=== PATIENT | female | born 1945 | race Caucasian/White ===

== ENCOUNTER 2016-12-12 11:58 | Emergency (ER) | payer MEDICARE, OTHER ==
[2016-12-12 13:08] LABS: BASOPHILS 0.3 % (0.0-2.0); EOSINOPHILS 0.4 % (0.0-6.0); HEMATOCRIT 45.8 % (36.0-48.0); HEMOGLOBIN 15.9 g/dL (12.0-16.0); LYMPHOCYTES 40.1 % (20.0-40.0); LYMPHOCYTES# 3.3 X 10^3uL (0.8-3.8); MEAN CELL VOLUME 89.7 fL (80.0-100.0); MEAN CORPUS. HGB CONCENTRATION 34.7 g/dL (32.0-36.0); MEAN CORPUSCULAR HEMOGLOBIN 31.1 pg (29.0-35.0); MONOCYTES 6.7 % (2.0-10.0); MONOCYTES# 0.6 X 10^3uL (0.2-1.0); NEUTROPHILS 52.5 % (54.0-75.0); NEUTROPHILS# 4.4 X 10^3uL (2.6-6.7); PLATELET COUNT 179 X 10^3uL (130-440); RED BLOOD COUNT 5.11 X 10^6uL (4.20-6.10); RED CELL DISTRIBUTION WIDTH 13.3 % (11.5-14.5); WHITE BLOOD COUNT 8.3 X 10^3uL (3.9-10.7)
[2016-12-12 13:20] LABS: BLOOD UREA NITROGEN 22 mg/dL (7-17); CALCIUM 9.7 mg/dL (8.4-10.2); CHLORIDE 108 mmol/L (98-107); CREATININE 0.9 mg/dL (0.5-1.0); EST GLOMERULAR FILTRATION RATE > 60 mL/min; GLUCOSE 125 mg/dL (70-100); MAGNESIUM 2.1 mg/dL (1.6-2.3); POTASSIUM 3.3 mmol/L (3.5-5.1); SODIUM 143 mmol/L (137-145)
[2016-12-12 13:34] LABS: TROPONIN I < 0.012 ng/mL (0.00-0.034)
[2016-12-12] MEDS ORDERED: POTASSIUM EFF 25 MEQ TABLET ONE (14:01)
--- NOTE | 2016-12-12 14:41 | ER NURSING DOCUMENTATION ---
Nurse's Notes [facility] Name:Morenita Baker Age:71 yrs Sex:Female :1945 Arrival Date:12/12/2016 Time:11:58 BedTrauma-A Private MD: Diagnosis:Atypical Chest Pain;Potassium Deficiency (Hypokalemia) Presentation: 12/12 12:08 Presenting complaint: Patient states: L jaw pain. Transition of care: Home. lp 12:08 Acuity: LAVERN 2 lp 12:08 Method Of Arrival: Walk In lp 14:30 AIR CAT ACTIVATION no other Not indicated. Asprin Given Given in ED. lp Triage Assessment: 12:10 General: Appears in no apparent distress, Behavior is appropriate for age. Pain: lp Complains of pain in left posterior upper chest wall and left posterior lower chest wall. EENT: No deficits noted. Neuro: No deficits noted. Cardiovascular: Capillary refill < 3 seconds Heart tones S1 S2 Pulses are all present. Rhythm is sinus tachycardia. Respiratory: Airway is patent Respiratory effort is even, unlabored, Respiratory pattern is regular, symmetrical. GI: No deficits noted. : No deficits noted. Derm: No deficits noted. Musculoskeletal: No deficits noted. Historical: - Allergies: PCN; - Home Meds: 1. Lisinopril Oral - PMHx: HYPERTENSION; Panic Disorder (February 21, 2014); - Tetanus: < 10 years. - Ebola Screening: : Patient negative for fever greater than or equal to 101.5 degrees Fahrenheit, and additional compatible Ebola Virus Disease symptoms. Patient denies exposure to infectious person. Patient denies travel to an Ebola-affected area in the 21 days before illness onset. . - Immunization history: Pneumococcal vaccine is up to date, Flu Vaccine < 1 year. - Social history: Smoking status: Patient states was never smoker of tobacco. Screenin:33 Infectious Disease Risk None. Abuse screen: Denies threats or abuse. Denies injuries lp from another. Nutritional screening: No deficits noted. Assessment: 14:32 See Triage Assessment done by same RN. Pain: Pain radiates to right jaw Pain began 1 lp hour ago. Neuro: No deficits noted. Cardiovascular: Heart tones S1 S2. Respiratory: Breath sounds are clear bilaterally. Vital Signs: 12:07 BP 183 / 91; Pulse 100; Resp 16; Temp 98.5; Pulse Ox 93% on R/A; Pain 5/10; lp 12:07 BP 145 / 89; Pulse 107; Resp 16; Pulse Ox 97% on R/A; Weight 100.7 kg; Height 5 ft. 3 lp in. (160.02 cm); Pain 4/10; 13:00 BP 144 / 86; Pulse 110; Resp 16; Pulse Ox 95% on R/A; lp 13:30 BP 162 / 73; Pulse 111; Resp 16; Pulse Ox 91% on R/A; lp 14:00 BP 148 / 76; Pulse 107; Resp 16; Pulse Ox 94% on R/A; lp 14:35 Pulse 110; Resp 16; Pulse Ox 94% on R/A; lp 12:07 Body Mass Index 39.33 (100.70 kg, 160.02 cm) lp ED Course: 11:59 Patient arrived in ED. ds 12:00 Valuables Remains with patient Patient has correct armband on for positive lp identification. Placed in gown. Bed in low position. Call light in reach. Side rails up X 1. 12:05 Grover Duffy MD is Attending Physician. sc 12:07 Milagros Cunningham, TY is Primary Nurse. lp 12:08 Triage completed. lp 12:15 Cardiac Monitoring On for Nurse Monitoring only. Pulse Ox - RN Monitoring Only NIBP On lp - RN Monitoring Only. 12:30 Inserted peripheral IV: 20 gauge in right antecubital area and blood collected. tg 12:49 EKG attached lp 14:[address] [place] is Referral Physician. sc 14:01 Derek Fox MD is Referral Physician. sc 14:29 Port Xray Completed. ms 14:31 CHEST; [place]ING[place]IEW [id number] In Process Unspecified. EDMS 14:33 Oxygen O2 via not indicated at this time. lp Administered Medications: 12:37 Drug: Aspirin Chewable Tablet 324 mg; Route: PO; lpr 13:38 Follow up: Response: No adverse reaction; No change in condition lpr 13:48 Drug: K-Lyte Effervescent Tablet 50 mEq; Route: PO; lpr 14:08 Follow up: Response: No adverse reaction; No change in condition lp Outcome: 14:02 Discharge ordered by . sc 14:34 Discharged to home ambulatory. lp 14:34 Condition: stable 14:34 Instructed on discharge instructions, follow up and referral plans. medication usage. 14:41 Patient left the ED. 12/13 10:40 Discharge F/U Call: Spoke with: patient. Are you having any pain? no. Have you made a lp f/u appointment? yes Signatures: Dispatcher [employer] [place] Bunch, RN RN Milagros Poe RN RN octaviano Leong, Esther, Reg Reg Grover Alcala MD MD id [facility] Lori Blackwood RN RN lpr
--- NOTE | 2016-12-12 14:42 | ER PHYSICIAN DOCUMENTATION ---
Physician Documentation Name:Morenita Baker Age:71 yrs Sex:Female :1945 Arrival Date:12/12/2016 Time:11:58 BedTrauma-A Private MD: Grover Aj Disposition: 12/12 14:01 Critical Care: not applicable. sc Disposition: 12/12/16 14:02 Discharged to Home/Self Care. Impression: Atypical Chest Pain, Potassium Deficiency (Hypokalemia). - Condition is Good. - Discharge Instructions: HYPOKALEMIA, CHEST PAIN Atypical - CHEST PAIN, Uncertain Cause. - Medical Reconciliation form form. - Follow up: [facility]; When: 1 - 2 days; Reason: Continuance of care. Follow up: Derek Fox MD; When: 1 week; Reason: If symptoms return, Recheck today's complaints. - Problem is new. - Symptoms are resolved. HPI: 13:55 This 71 yrs old Female presents to ER via Walk In with complaints of Chest sc Pain. 13:55 The patient or guardian reports chest pain that is located primarily in the left jaw. sc Onset: 2 hour(s) ago. The pain does not radiate. There has been no movement of pain. Associated signs and symptoms: Pertinent positives: nausea, felt scared. The chest pain is described as aching. Duration: The patient or guardian reports a single episode, that lasted 10 minute(s). Modifying factors: The symptoms are alleviated by nothing. the symptoms are aggravated by nothing. Severity of pain: At its worst the pain was moderate in the emergency department the pain has resolved. This patient does not have any risk factors related to chest pain. Historical: - Allergies: PCN; - Home Meds: 1. Lisinopril Oral - PMHx: HYPERTENSION; Panic Disorder (February 21, 2014); - Tetanus: < 10 years. - Ebola Screening: : Patient negative for fever greater than or equal to 101.5 degrees Fahrenheit, and additional compatible Ebola Virus Disease symptoms. Patient denies exposure to infectious person. Patient denies travel to an Ebola-affected area in the 21 days before illness onset. . - Immunization history: Pneumococcal vaccine is up to date, Flu Vaccine < 1 year. - Social history: Smoking status: Patient states was never smoker of tobacco. ROS: 13:56 Constitutional: Negative for fever, chills, and weight loss. sc Eyes: Negative for injury, pain, redness, and discharge. ENT: Negative for injury, pain, and discharge. Neck: Negative for injury, pain, and swelling. Respiratory: Negative for shortness of breath, cough, wheezing, and pleuritic chest pain. Back: Negative for injury and pain. : Negative for injury, bleeding, discharge, and swelling. MS/Extremity: Negative for injury and deformity. Skin: Negative for injury, rash, and discoloration. 13:56 Neuro: Negative for headache, weakness, numbness, tingling, and seizure. sc 13:56 Cardiovascular: Positive for chest pain. 13:56 Abdomen/GI: Positive for nausea, Negative for abdominal pain, vomiting, diarrhea. Exam: Constitutional: This is a well developed, well nourished patient who is awake, alert, and in no acute distress. Head/Face: Normocephalic, atraumatic. Eyes: Pupils equal round and reactive to light, extra-ocular motions intact. Lids and lashes normal. Conjunctiva and sclera are non-icteric and not injected. Cornea within normal limits. Periorbital areas with no swelling, redness, or edema. ENT: Nares patent. No nasal discharge, no septal abnormalities noted. Tympanic membranes are normal and external auditory canals are clear. Oropharynx with no redness, swelling, or masses, exudates, or evidence of obstruction, uvula midline. Mucous membranes moist. Neck: Trachea midline, no thyromegaly or masses palpated, and no cervical lymphadenopathy. Supple, full range of motion without nuchal rigidity, or vertebral point tenderness. No meningismus. Chest/axilla: Normal chest wall appearance and motion. Nontender with no deformity. No lesions are appreciated. Cardiovascular: Regular rate and rhythm with a normal S1 and S2. No gallops, murmurs, or rubs. Normal PMI, no JVD. No pulse deficits. Respiratory: Lungs have equal breath sounds bilaterally, clear to auscultation and percussion. No rales, rhonchi or wheezes noted. No increased work of breathing, no retractions or nasal flaring. Abdomen/GI: Soft, non-tender, with normal bowel sounds. No distension or tympany. No guarding or rebound. No evidence of tenderness throughout. Back: No spinal tenderness. No costovertebral tenderness. Full range of motion. Skin: Warm, dry with normal turgor. Normal color with no rashes, no lesions, and no evidence of cellulitis. MS/ Extremity: Pulses equal, no cyanosis. Neurovascular intact. Full, normal range of motion, negative Homans's, calves equal bilaterally. 13:56 Neuro: Awake and alert, GCS 15, oriented to person, place, time, and situation. ut Cranial nerves II-XII grossly intact. Motor strength 5/5 in all extremities. Sensory grossly intact. Cerebellar exam normal. Normal gait. 13:56 Cardiovascular: Rate: tachycardic, Rhythm: regular. 13:56 Respiratory: the patient does not display signs of respiratory distress, Respirations: normal, Breath sounds: are normal. Vital Signs: 12:07 BP 183 / 91; Pulse 100; Resp 16; Temp 98.5; Pulse Ox 93% on R/A; Pain 5/10; lp 12:07 BP 145 / 89; Pulse 107; Resp 16; Pulse Ox 97% on R/A; Weight 100.7 kg; Height 5 ft. 3 lp in. (160.02 cm); Pain 4/10; 13:00 BP 144 / 86; Pulse 110; Resp 16; Pulse Ox 95% on R/A; lp 13:30 BP 162 / 73; Pulse 111; Resp 16; Pulse Ox 91% on R/A; lp 14:00 BP 148 / 76; Pulse 107; Resp 16; Pulse Ox 94% on R/A; lp 14:35 Pulse 110; Resp 16; Pulse Ox 94% on R/A; lp 12:07 Body Mass Index 39.33 (100.70 kg, 160.02 cm) lp MDM: 12:05 Patient medically screened. sc 12:49 EKG attached lp 14:00 Differential diagnosis: acute myocardial infarction, acute pericarditis, anxiety, chest sc wall pain. Patient took aspirin in the Emergency Department. Patient did not receive fibrinolytic due to . Data reviewed: vital signs, nurses notes, diagnostic data from outside facility, old medical records, lab test result(s), EKG, radiologic studies, and as a result, I will continue to observe the patient. Data interpreted: desk monitor: rate is 100 beats/min, rhythm is normal sinus rhythm. ECG:. 12/12 13:22 Order name: CBC AUTO DIF, MDIF/RMOR IF IND; Complete Time: 13:37 EDPA 12/12 13:36 Interpretation: Normal. ut 12/12 13:23 Order name: BASIC METABOLIC PANEL; Complete Time: 13:37 EDPA 12/12 13:36 Interpretation: Normal Except: POTASSIUM 3.3; CHLORIDE 108; GLUCOSE 125; BLOOD UREA sc NITROGEN 22. 12/12 13:23 Order name: MAGNESIUM; Complete Time: 13:37 EDPA 12/12 13:36 Interpretation: Normal. ut 12/12 13:35 Order name: TROPONIN I; Complete Time: 13:37 EDPA 12/12 13:37 Interpretation: Normal. ut 12/12 14:31 Order name: CHEST; [place] [id number] [facility] 12/13 07:45 Order name: CHEST; [place] [id number] [facility] 12/12 12:12 Order name: 12-lead EKG; Complete Time: 12:53 ut 12/12 12:12 Order name: Iv Saline Lock; Complete Time: 12:53 ut 12/12 12:12 Order name: Place Patient On Monitor; Complete Time: 12:53 ut 12/12 12:12 Order name: Pulse Ox Continuous; Complete Time: 12:53 ut EC:00 Rate is 105 beats/min. Rhythm is regular. QRS [place] is Normal. [place] interval is normal. sc QRS interval is normal. QT interval is normal. No Q waves. T waves are Normal. No ST changes noted. Clinical impression: Abnormal EKG without significant change. Interpreted by me. Reviewed by me. Dispensed Medications: 12:37 Drug: Aspirin Chewable Tablet 324 mg; Route: PO; lpr 13:38 Follow up: Response: No adverse reaction; No change in condition lpr 13:48 Drug: K-Lyte Effervescent Tablet 50 mEq; Route: PO; lpr 14:08 Follow up: Response: No adverse reaction; No change in condition lp Signatures: Milagros Cunningham RN RN lp Grover Duffy MD MD sc Lori Blackwood RN RN lpr
--- NOTE | 2016-12-12 21:05 | RADIOLOGY REPORT ---
A limited single portable view of the chest, without prior films for comparison , demonstrates the heart, vessels and lungs to be unremarkable. No infiltrate, fluid or pneumothorax is seen. IMPRESSION: Unremarkable limited single portable view of the chest. MTDD
== END 2016-12-12 14:41 | disposition home or self-care (01) ==
LOC: ER 11:58
DX: R07.89 Other chest pain (principal); E87.6 Hypokalemia; R11.0 Nausea; R00.0 Tachycardia, unspecified; R94.31 Abnormal electrocardiogram [ECG] [EKG]; I25.2 Old myocardial infarction; I10 Essential (primary) hypertension; Z79.899 Other long term (current) drug therapy
CPT/HCPCS: 71010; 80048; 83735; 84484; 85025; 93010; 99284; 99285